=== PATIENT | female | born 1960 | race Caucasian/White ===

== ENCOUNTER → 2017-08-13 | Outpatient (CLI) | payer BC ==
--- NOTE | 2017-08-14 09:12 | KCIC ---
MRI left shoulder without contrast dated 08/13/2017 5:45 PM Indication: Progressive left shoulder pain , limited range of motion. Pain located posterior no known injury Comparison: None Technique: Routine multiplanar multisequence imaging performed. . Findings: Intermediate T2 signal throughout the supraspinatus infraspinatus portions of the rotator cuff. There is moderate bursal surface partial tearing of the supraspinatus footplate. There is also a focus of low T1 and T2 signal at the supraspinatus footplate that is most likely related to calcification. No full-thickness tear or cuff retraction. Subscapularis is intact. There is mild increased signal within the substance of the long head biceps tendon. Extra articular portion courses within the bicipital groove. Biceps anchor intact. Mild posterior glenoid dysplasia. There is some linear signal at the posterior superior labrum extending along the labral cartilaginous interface and does not appear to be complete. Glenoid labrum is otherwise intact. No cartilage defect. No joint effusion or loose body. Mild hypertrophic change of the acromioclavicular joint. No significant undersurface spurring. Acromion type I morphology. No significant subacromial/subdeltoid bursal fluid. Suprascapular and spinoglenoid notches are clear. No significant muscle edema or muscle atrophy. IMPRESSION: 1. Mild to moderate rotator cuff tendinopathy with moderate grade bursal surface partial tearing of the supraspinatus footplate. 2. Small calcification at the supraspinatus footplate consistent with calcific tendinosis and/or calcific bursitis. 3. Mild posterior glenoid dysplasia. There is some linear signal within the posterior superior labrum that likely represents a normal sulcus along the labral cartilaginous interface. If there is clinical concern for labral tear, MRI arthrogram may better evaluate. 4. Mild AC joint arthropathy. 5. Mild biceps tendinosis. Electronically signed by: Anhtony Hein MD (08/14/2017 9:08 AM) [id number]
== END | disposition home or self-care (01) ==
LOC: KCIC MRI 17:47
PROVIDERS: ATTEND Family Medicine
DX: M75.102 Unspecified rotator cuff tear or rupture of left shoulder, not specified as traumatic (principal)
CPT/HCPCS: 73221